=== PATIENT | female | born 1955 | race Caucasian/White ===

== ENCOUNTER 2017-12-19 20:35 | Emergency (ER) | payer BC ==
[~2017-12-19] VITALS: Ht 165.1 cm; Wt 53.9 kg
[2017-12-19 22:45] VITALS: BP 187/87
== END 2017-12-19 22:47 | disposition home or self-care (01) ==
LOC: EME 20:35
DX: S61.011A Laceration without foreign body of right thumb without damage to nail, initial encounter (principal); W26.8XXA Contact with other sharp object(s), not elsewhere classified, initial encounter; Y93.89 Activity, other specified; Z23 Encounter for immunization
CPT/HCPCS: 73140; 99281; 99284; S0020